=== PATIENT | female | born 1995 | race Caucasian/White ===

== ENCOUNTER 2017-09-08 12:13 | Emergency (ER) | payer OTHER | END 2017-09-08 15:09 | disposition home or self-care (01) | LOC: E/R 12:13 | DX: J02.9 Acute pharyngitis, unspecified (principal) | CPT/HCPCS: 99283; Z7502 ==

== ENCOUNTER 2017-10-29 08:37 | Emergency (ER) | payer OTHER | END 2017-10-29 10:16 | disposition home or self-care (01) | LOC: FTE 08:37 | DX: J02.9 Acute pharyngitis, unspecified (principal) | CPT/HCPCS: 87880; 99283 ==

== ENCOUNTER 2019-02-19 07:06 | Day surgery (SDC) | payer OTHER ==
[2019-02-19] MEDS ORDERED: PROPOFOL 40 ML (08:16)
[2019-02-19] MEDS ORDERED: LIDOCAINE 2% (SDV) 5 ML INJ (08:17)
[2019-02-19] MEDS ORDERED: FENTAnyl 50 MCG/ML VIAL IV (10:00)
== END 2019-02-19 10:22 | disposition home or self-care (01) ==
LOC: GIL 07:06
DX: K21.0 Gastro-esophageal reflux disease with esophagitis (principal); J45.909 Unspecified asthma, uncomplicated
CPT/HCPCS: 43239; 84703; 88305; 88312; 88313